=== PATIENT | female | born 1940 | race Caucasian/White ===

== ENCOUNTER 2021-04-12 14:34 | Outpatient (CLI) | payer MEDICARE ==
[2021-04-13 17:56] LABS: SARS-CoV-2 PCR by NAA Not Detected (NotDetected)
== END 2021-04-12 14:35 | disposition home or self-care (01) ==
LOC: CSHLAB 14:34
PROVIDERS: ATTEND Physician Assistant Medical
DX: Z20.822 Contact with and (suspected) exposure to COVID-19 (principal); K44.9 Diaphragmatic hernia without obstruction or gangrene; R10.10 Upper abdominal pain, unspecified
CPT/HCPCS: U0003; U0005